=== PATIENT | female | born 1990 ===

== ENCOUNTER 2018-09-14 12:44 | Outpatient (CLI) | payer OTHER | END 2018-09-14 14:23 | disposition home or self-care (01) | LOC: SONOGRAMA 12:44 | DX: N60.11 Diffuse cystic mastopathy of right breast (principal); N60.12 Diffuse cystic mastopathy of left breast ==

== ENCOUNTER 2021-11-30 08:45 | Inpatient (IN) | payer OTHER ==
[~2021-11-30] VITALS: Ht 152.4 cm; Wt 3.2 kg
[~2021-11-30 08:45] MED LIST: PRENATAL PO
[2021-12-02] MEDS ORDERED: INTEGRA PLUS C1 EACH PO (08:28)
[2021-12-03] MEDS ORDERED: PRENATAL + DHA1 EAC1 (08:10)
== END 2021-12-05 14:01 | disposition home or self-care (01) | DRG 788 ==
LOC: SURG-SUITE 12-02 07:57 → O/R 12-02 07:57 → LDR 12-02 08:15 → SURG-SUITE 12-02 12:59
PROVIDERS: ADMIT Obstetrics & Gynecology Maternal & Fetal Medicine; ATTEND Obstetrics & Gynecology Maternal & Fetal Medicine
PROC: 4A1HXCZ Monitoring of Products of Conception, Cardiac Rate, External Approach (ICD-10-PCS; 2021-12-02)
PROC: 10D00Z1 Extraction of Products of Conception, Low, Open Approach (ICD-10-PCS; principal; 2021-12-02 08:15)
DX: O32.1XX0 Maternal care for breech presentation, not applicable or unspecified (principal); Z3A.39 39 weeks gestation of pregnancy; Z37.0 Single live birth; Z20.822 Contact with and (suspected) exposure to COVID-19

== ENCOUNTER 2025-10-10 09:58 | Outpatient (CLI) | payer OTHER ==
[~2025-10-10 09:58] MED LIST changes: +INTEGRA PLUS C1 EACH PO; +PRENATAL + DHA1 EAC1
== END 2025-10-10 10:00 | disposition home or self-care (01) ==
LOC: MAMO-SONO 09:58
PROVIDERS: ATTEND Obstetrics & Gynecology Maternal & Fetal Medicine
DX: N63.20 Unspecified lump in the left breast, unspecified quadrant (principal)